=== PATIENT | female | born 1990 | race Two or more races ===

== ENCOUNTER 2021-05-22 09:56 | Emergency (ER) | payer OTHER ==
[~2021-05-22] VITALS: Ht 154.9 cm; Wt 68.0 kg
== END 2021-05-22 11:16 | disposition home or self-care (01) ==
LOC: ER 09:56
DX: S00.422A Blister (nonthermal) of left ear, initial encounter (principal); X58.XXXA Exposure to other specified factors, initial encounter; Y93.9 Activity, unspecified; Y92.9 Unspecified place or not applicable; Y99.9 Unspecified external cause status